=== PATIENT | female | born 1955 ===

== ENCOUNTER 2016-06-10 12:44 | Emergency (ER) | payer MEDICARE, MEDICAID ==
[2016-06-10 12:51] VITALS: TEMP 98
--- NOTE | 2016-06-10 13:10 | ED PDOC ---
HPI: Altered Mental Status Time Seen by Provider: 06/10/16 13:05 Chief Complaint (Nursing): Altered Mental Status Chief Complaint (Provider): AMS History Per: Patient Additional Complaint(s): Pt brought in by [facility] for AMS called in by custom home installer. Pt is oriented to A/Ox2. As per EMS custom home installer states the patient mistakenly took her night medications and appeared drowsy. Pt stating she does not know why she was brought here. Accucheck 110 in triage. Pt at this time reports a PMH of Asthma, Breast CA (s/p Double mastectomy) Diabetes and Hyperlipidemia. Pt does admit to being "dizzy;" however, reports that she has been dizzy for several weeks now. Past Medical History Reviewed: Historical Data, Nursing Documentation, Vital Signs Vital Signs: Last Vital Signs Temp 98 F 06/10/16 12:46 Pulse 98 H 06/10/16 12:46 Resp 17 06/10/16 12:46 BP 126/72 06/10/16 12:46 Pulse Ox 95 06/10/16 12:46 - Medical History PMH: Anxiety, Arthritis, Asthma, Bipolar Disorder, COPD, Depression, Diabetes, HTN, Hypercholesterolemia, Schizophrenia Denies: Hepatitis, HIV, Chronic Kidney Disease, Seizures, Sexually Transmitted Disease - Surgical History Other surgeries: b/l mastectomy - Family History Family History: States: Unknown Family Hx - Living Arrangements Living Arrangements: Other (has home health aid) - Social History Current smoker - smoking cessation education provided: No Alcohol: None Drugs: Denies - Home Medications Home Medications: Ambulatory Orders Medication Instructions Recorded ARIPiprazole [Abilify] 15 mg PO DAILY 04/01/16 Acetaminophen with Codeine 1 tab PO Q4H PRN 04/01/16 [Tylenol with Codeine #3 Tablet] Albuterol/Ipratropium [Duoneb 3 3 ml IH TID PRN 04/01/16 mg/0.5 mg (3 ml) UD] Benzonatate [Tessalon Perle] 100 mg PO Q8H PRN 04/01/16 Benztropine [Cogentin] 1 mg PO BID 04/01/16 Enalapril Maleate [Vasotec] 5 mg PO DAILY 04/01/16 Glimepiride [Amaryl] 1 mg PO DAILY 04/01/16 Lactulose [Generlac] 30 ml PO DAILY PRN 04/01/16 Lamotrigine [Lamictal] 150 mg PO BID 04/01/16 Meclizine [Meclizine*] 25 mg PO TID PRN 04/01/16 Montelukast [Singulair] 10 mg PO HS 04/01/16 OXcarbazepine [Trileptal] 300 mg PO QAM 04/01/16 Oxcarbazepine [Trileptal] 600 mg PO HS 04/01/16 Risperidone [Risperdal] 4 mg PO HS 04/01/16 Rosuvastatin Calcium [Crestor] 10 mg PO HS 04/01/16 clonazePAM [Klonopin] 0.5 mg PO BID PRN 04/01/16 metFORMIN [glucOPHAGE] 500 mg PO BID 04/01/16 buPROPion [Wellbutrin] 75 mg PO BID #60 tab 04/06/16 - Allergies Allergies/Adverse Reactions: Allergies Allergy/AdvReac Type Severity Reaction Status Date / Time apple Allergy RASH Verified 06/10/16 12:53 Review of Systems ROS Statement: Except As Marked, All Systems Reviewed And Found Negative Physical Exam - Reviewed Nursing Documentation Reviewed: Yes Vital Signs Reviewed: Yes - Physical Exam Appears: Positive for: Well, Non-toxic, No Acute Distress Head Exam: Positive for: ATRAUMATIC, NORMAL INSPECTION, NORMOCEPHALIC Skin: Positive for: Normal Color, Warm, DRY Eye Exam: Positive for: EOMI, Normal appearance, PERRL ENT: Positive for: Normal ENT Inspection Neck: Positive for: Normal, Painless ROM Cardiovascular/Chest: Positive for: Regular Rate, Rhythm Respiratory: Positive for: CNT, Normal Breath Sounds Gastrointestinal/Abdominal: Positive for: Normal Exam, Bowel Sounds, Soft Back: Positive for: Normal Inspection Extremity: Positive for: Normal ROM Neurologic/Psych: Positive for: Alert, Oriented - Laboratory Results Result Diagrams: 06/10/16 13:37 06/10/16 15:15 - ECG O2 Sat by Pulse Oximetry: 95 Medical Decision Making Medical Decision Making: Diagnostics ordered Pt without any complaints of pain. Head CT Negative Labs resulted and reviewed with pt who demonstrated full understanding Pt administered IVF due to hyponatremia, and repeat 136 Pt calm and cooperative throughout visit. Offers no physical complaints. asking to go home. neuro exam remains non focal, Pt alert to person, place and time on re-eval Disposition - Clinical Impression Clinical Impression: Altered mental status, Medication adverse effect, Hyponatremia - Patient ED Disposition Is Patient to be Admitted: No - Disposition Disposition: Routine/Home Disposition Time: 16:07 Condition: GOOD Instructions: Hyponatremia (ED) - POA Present On Arrival: None
[2016-06-10 13:45] LABS: BASO # 0.1 K/uL (0.0-0.2); BASO % 0.6 % (0.0-2.0); EOS # 0.3 K/uL (0.0-0.7); HEMATOCRIT 38.6 % (34.0-47.0); LYMPH # 3.3 K/uL (1.0-4.3); LYMPH % 31.8 % (20.0-40.0); MEAN CELL VOLUME 91.4 fl (81.0-99.0); MEAN CORPUSCULAR HEMOGLOBIN 31.3 pg (27.0-31.0); MEAN CORPUSCULAR HGB CONC 34.2 g/dL (33.0-37.0); MONO % 9.4 % (0.0-10.0); NEUT # 5.7 K/uL (1.8-7.0); NEUT % 55.2 % (50.0-75.0); NRBC % 0.1 % (0.0-0.0); RED CELL DISTRIBUTION WIDTH 13.5 % (11.5-14.5); WHITE BLOOD COUNT 10.4 K/uL (4.8-10.8)
[2016-06-10 13:58] LABS: ALB/GLOB RATIO 1.2 (1.0-2.1); ALKALINE PHOSPHATASE 98 U/L (38-126); ALT/SGPT 28 U/L (9-52); AST/SGOT 26 U/L (14-36); BILIRUBIN,TOTAL 0.3 mg/dl (0.2-1.3); BLOOD UREA NITROGEN 12 mg/dl (7-17); CALCIUM 9.6 mg/dL (8.4-10.2); CARBON DIOXIDE 22 mmol/L (22-30); CHLORIDE 102 mmol/L (98-107); GFR AFRICAN-AMERICAN > 60; GLUCOSE,RANDOM 104 mg/dL (65-105); POTASSIUM 4.2 MMOL/L (3.6-5.0); SODIUM 125 mmol/l (132-148); TOTAL PROTEIN 7.6 G/DL (6.3-8.2)
[2016-06-10 14:22] LABS: RBC URINE 3 /hpf (0-3); RENAL EPITHELIAL 4 /hpf (0-3); URINE BILIRUBIN NEGATIVE (NEGATIVE); URINE BLOOD SMALL (NEGATIVE); URINE COLOR YELLOW (YELLOW); URINE GLUCOSE (UA) NEG (Normal); URINE KETONE NEGATIVE (NEGATIVE); URINE LEUKOCYTE ESTERASE NEG Leu/uL (Negative); URINE PROTEIN NEGATIVE (NEGATIVE); URINE UROBILINOGEN 0.2-1.0 mg/dL (0.2-1.0); WBC URINE 1 /hpf (0-5)
--- NOTE | 2016-06-10 14:36 | CT ---
PROCEDURE: CT HEAD WITHOUT CONTRAST. HISTORY: Dizziness COMPARISON: Noncontrast head CT from 04/01/2016. MRI brain without contrast from 04/02/2016. TECHNIQUE: Axial computed tomography images were obtained through the head/brain without intravenous contrast. Radiation dose: Total exam DLP = 1009.31 MGy-cm. This CT exam was performed using one or more of the following dose reduction techniques: Automated exposure control, adjustment of the mA and/or kV according to patient size, and/or use of iterative reconstruction technique. FINDINGS: HEMORRHAGE: No intracranial hemorrhage. BRAIN: Mehta-white matter differentiation is preserved. There is no mass, mass effect or abnormal extra-axial fluid collection. VENTRICLES: There is mild age-related global parenchymal volume loss and proportionate enlargement of the ventricles and cortical sulci. CALVARIUM: The skull base and calvarium are normal. PARANASAL SINUSES: Predominantly clear. MASTOID AIR CELLS: Predominantly clear. OTHER FINDINGS: None. IMPRESSION: No acute intracranial abnormality. Mild age-related global parenchymal volume loss.
[2016-06-10] MEDS ORDERED: Sodium Chloride 0.9% 1,000 ML IV STA (14:46)
[2016-06-10 15:20] VITALS: BP 132/87; PULSE 89; RESP 14
[2016-06-10 15:30] LABS: MAGNESIUM 1.5 MG/DL (1.6-2.3)
[2016-06-10 16:03] VITALS: O2SAT 95
--- NOTE | 2016-06-11 11:36 | CARD ---
APPROVED REPORT EKG Measurement Heart [id number] DC 140P65 [id number] <Conclusion> Sinus tachycardia Otherwise normal ECG
== END 2016-06-10 21:13 | disposition home or self-care (01) ==
LOC: H.ER 12:44
DX: R41.82 Altered mental status, unspecified (principal); R42 Dizziness and giddiness; E87.1 Hypo-osmolality and hyponatremia; E11.9 Type 2 diabetes mellitus without complications; E78.5 Hyperlipidemia, unspecified
CPT/HCPCS: 70450; 80053; 81003; 82948; 83735; 84295; 84484; 85025; 93005; 99285; G0480; J7040